=== PATIENT | female | born 1975 | race Two or more races ===

== ENCOUNTER 2022-11-25 10:15 | Inpatient (IN) | payer OTHER ==
[~2022-11-25] VITALS: Ht 172.7 cm; Wt 81.6 kg
[2022-11-25] MEDS ORDERED: [UNRECOGNIZED DRUG - OTHER] PO (11:07)
[2022-11-28] MEDS ORDERED: PHENTERMINE H37.5 M1 (09:13)
[2022-11-28] MEDS ORDERED: ARMOUR THYROID60 M1 (09:13)
[2022-11-29] MEDS ORDERED: Tylenol #3 PO (09:05)
[2022-11-29] MEDS ORDERED: NAPR500T14 PO (09:05)
== END 2022-11-29 09:49 | disposition home or self-care (01) | DRG 741 ==
LOC: O/R 11-28 08:00 → OB/GYN 11-28 10:15
PROVIDERS: ADMIT Obstetrics & Gynecology; ATTEND Obstetrics & Gynecology
PROC: 0UT27ZZ Resection of Bilateral Ovaries, Via Natural or Artificial Opening (ICD-10-PCS; 2022-11-28)
PROC: 0UT77ZZ Resection of Bilateral Fallopian Tubes, Via Natural or Artificial Opening (ICD-10-PCS; 2022-11-28)
PROC: 0JQC0ZZ Repair Pelvic Region Subcutaneous Tissue and Fascia, Open Approach (ICD-10-PCS; 2022-11-28)
PROC: 0USG0ZZ Reposition Vagina, Open Approach (ICD-10-PCS; 2022-11-28)
PROC: 0UT97ZZ Resection of Uterus, Via Natural or Artificial Opening (ICD-10-PCS; principal; 2022-11-28 10:30)
DX: D06.1 Carcinoma in situ of exocervix (principal); D25.1 Intramural leiomyoma of uterus; N81.11 Cystocele, midline; D25.2 Subserosal leiomyoma of uterus; N83.292 Other ovarian cyst, left side; N83.291 Other ovarian cyst, right side